=== PATIENT | male | born 1960 | race Caucasian/White ===

== ENCOUNTER → 2020-07-26 14:07 | Outpatient (CLI) | payer OTHER, MEDICAID, SELFPAY ==
[2020-07-26 15:01] LABS: COVID19 -Nasal RAPID Negative (Negative)
== END ==
PROVIDERS: Referring Provider Family Medicine; Visit Provider Family Medicine
DX: Z20.822 Contact with and (suspected) exposure to COVID-19 (principal)
CPT/HCPCS: 87635; C9803

== ENCOUNTER → 2020-07-26 14:11 | Outpatient (CLI) | payer OTHER, MEDICAID, SELFPAY ==
--- NOTE | 2020-08-01 11:14 | P.PFT.S_ITS ---
Pulmonary Function Test Referral & Results Date Patient Seen: 07/26/20 Results: The spirometry demonstrates an FVC of 3.56 L which is 70% of predicted. The FEV1 was measured at 2.07 L which is 60% of predicted. The FEV1/FVC ratio was 58 which is 77% of predicted. Following the administration of bronchodilator there was no appreciable change. Lung volumes show an SVC of 3.62 L which is 79% of predicted. The diffusing capacity was measured at 21.06 which is 67% of predicted. No h emoglobin value was provided, so no correction for potential anemia could be made, if appropriate. The maximum voluntary ventilation was normal Interpretation: This study demonstrates moderate obstructive lung disease based on reduction FEV1 although FEV1/FVC ratio is relatively preserved. There is no evidence of benefit following bronchodilator There is a mild reduction in lung volumes suggesting minimal restrictive lung disease There is also [id number] reduction in diffusing capacity suggesting element of disease at the capillary alveolar level
== END ==
PROVIDERS: Referring Provider Family Medicine; Visit Provider Family Medicine
DX: J44.9 Chronic obstructive pulmonary disease, unspecified (principal)
CPT/HCPCS: 94060; 94726; 94729

== ENCOUNTER → 2020-07-26 15:28 | Outpatient (CLI) | payer OTHER, MEDICAID, SELFPAY ==
[2020-07-26] MEDS: COVID-19 VACC #1, MRNA(MOD) 100 MCG/0.5 ML VIAL IM (15:38)
== END ==
PROVIDERS: Visit Provider Internal Medicine
DX: Z23 Encounter for immunization (principal)
CPT/HCPCS: 0011A; 91301

== ENCOUNTER → 2020-08-24 08:36 | Outpatient (CLI) | payer OTHER, MEDICAID, SELFPAY ==
[2020-08-24] MEDS: COVID-19 VACC #2, MRNA(MOD) 100 MCG/0.5 ML VIAL IM (08:50)
== END ==
PROVIDERS: Visit Provider Internal Medicine
DX: Z23 Encounter for immunization (principal)
CPT/HCPCS: 0012A; 91301

== ENCOUNTER 2021-11-22 11:10 | Emergency (ER) | payer OTHER, MEDICAID, SELFPAY ==
[2021-11-22 11:15] VITALS: BP 130/74; PULSE 76; RESP 15; TEMP 36.1; O2SAT 99; BMI 23.6
[2021-11-22] MEDS: BACITRACIN OINT 0.9 GM PCKT 2 APPLIC TOP (12:41)
[2021-11-22] MEDS: TET,DIPH,PERTUSS(ACELL),VAC/PF 0.5 ML SYRINGE IM (12:42)
--- NOTE | 2021-11-22 14:00 | ED_ITS ---
HPI - Wound/Laceration <Jackson Bojorquez PA-C - Last Filed: 11/22/21 14:06> General Chief Complaint: Wound/Laceration Stated Complaint: Left finger lac Time Seen by Provider: 11/22/21 12:25 Source: patient Mode of arrival: Ambulatory History of Present Illness HPI narrative: Patient is 61-year-old male to the emergency room today with complaint of cut to his left index finger tip. Patient states he was using an electric tool in the y[place] and it slipped and cut his distal to. Patient states this happened over 24 hours ago and initially had some bleeding but it has significantly decreased. Denies any other concerns at this time. Related Data Previous Rx's Medication Instructions Recorded cephalexin 500 mg capsule 500 mg PO TID #15 caps 11/22/21 Allergies Allergy/AdvReac Type Severity Reaction Status Date / Time No Known Drug Allergies Allergy Verified 11/22/21 11:15 Review of Systems <Jackson Bojorquez PA-C - Last Filed: 11/22/21 14:06> Review of Systems Narrative: R.O.S.: General: No fever, chills or fatigue. Cardiovascular: No chest pain or palpitations Respiratory: No S.O.B. HEENT: No congestion, ear pain, rhinorrhea, sore throat or tinnitus Gastrointestinal: No nausea or vomiting Skin: Cut to distal left index finger Neurological: Awake, alert and in not apparent distress. No Headaches, changes in vision or other related neurological concerns. Patient History <Jackson Bojorquez PA-C - Last Filed: 11/22/21 14:06> Social History Smoking Status: Current every day smoker Smoking Status: Current every day smoker alcohol intake frequency: 0-2 drinks per day Substance Use Type: does not use Exam <Jackson Bojorquez PA-C - Last Filed: 11/22/21 14:06> Narrative Exam Narrative: Physical Exam: ? General: normal appearance, well developed, well nourished, alert, and awake. Not in acute distress. ? Head: Normocephalic, no lesions. Chest: Lungs CTAB, no rales, rhonchi or wheezes. ?? Heart: RRR, no murmurs, rubs or gallops. Eyes: PERRLA, EOM's full, conjunctivae clear. ? Neuro: Physiological, no localizing findings, CN3-12 intact. ?? Extremities: Warm, well perfused, FROM, no deformities, no edema. ?? Skin: Patient has a superficial laceration to the dorsal left distal index finger. Has bilateral very minimal erythema swelling or bleeding at this time. The nailbed is mildly involved at the base and also with appears to be a superficial cut. PSYCHIATRIC: The mood is good, no blunted affect. Speech is clear. Thought process is linear, thought content is appropriate. The voice is without significant inflection. Initial Vital Signs Initial Vital Signs: Vital Signs Temperature 97.0 F L 11/22/21 11:15 Pulse Rate 76 11/22/21 11:15 Respiratory Rate 15 11/22/21 11:15 Blood Pressure 130/74 11/22/21 11:15 Pulse Oximetry 99 11/22/21 11:15 Oxygen Delivery Method 11/22/21 11:15 <Britney Pineda DO - Last Filed: 11/27/21 07:05> Initial Vital Signs Initial Vital Signs: Vital Signs Temperature 97.0 F L 11/22/21 11:15 Pulse Rate 76 11/22/21 11:15 Respiratory Rate 15 11/22/21 11:15 Blood Pressure 130/74 11/22/21 11:15 Pulse Oximetry 99 11/22/21 11:15 Oxygen Delivery Method 11/22/21 11:15 Course <Jackson Bojorquez PA-C - Last Filed: 11/22/21 14:06> Orders Ordered: Discontinued Medications Bacitracin (Bacitracin Oint 0.9 Gm Pckt) 2 applic TOP NOW ONE Stop: 11/22/21 12:36 Last Admin: 11/22/21 12:41 Dose: 2 applic Documented By: RYLAN Diphtheria/Tetanus/Acell Pertussis (Tet,Diph,Pertuss(Acell),Vac/Pf 0.5 Ml Syringe) 0.5 ml IM .ONCE ONE Stop: 11/22/21 12:31 Last Admin: 11/22/21 12:42 Dose: 0.5 ml Documented By: RYLAN Vital Signs Vital signs: Vital Signs - 8 hr 11/22/21 11:15 Temperature 97.0 F L Pulse Rate 76 Respiratory Rate 15 Blood Pressure 130/74 Pulse Oximetry 99 Oxygen Delivery Method Room Air <Britney Pineda DO - Last Filed: 11/27/21 07:05> Orders Ordered: Discontinued Medications Bacitracin (Bacitracin Oint 0.9 Gm Pckt) 2 applic TOP NOW ONE Stop: 11/22/21 12:36 Last Admin: 11/22/21 12:41 Dose: 2 applic Documented By: RYLAN Diphtheria/Tetanus/Acell Pertussis (Tet,Diph,Pertuss(Acell),Vac/Pf 0.5 Ml Syringe) 0.5 ml IM .ONCE ONE Stop: 11/22/21 12:31 Last Admin: 11/22/21 12:42 Dose: 0.5 ml Documented By: RYLAN Vital Signs Vital signs: Vital Signs - 8 hr 11/22/21 11:15 Temperature 97.0 F L Pulse Rate 76 Respiratory Rate 15 Blood Pressure 130/74 Pulse Oximetry 99 Oxygen Delivery Method Room Air MDM - Wound/Laceration <Jackson Bojorquez PA-C - Last Filed: 11/22/21 14:06> MDM Narrative Medical decision making narrative: Patient is 61-year-old male who presents to the emergency room today with complaint of a cut to the left wrist or hand finger happened over 24 hours ago.. Four days on physical exam patient was noted to have a superficial macerated abrasion to the left breast and also aware comfortably dorsal index finger. The area has very minimal swelling her most are station with minimal to no drainage erythema this time plan Discharge Plan Departure Patient Disposition: Home Clinical Impression: Finger laceration Instructions: DI for Laceration Repair Activity Restrictions/Additional Instructions: *You have been diagnosed with [Left finger laceration ]. Your laceration is superficial hand and has been over 24 hours since the initial injury. The injury started to heal so no sutures would be placed at this time. He received Tdap and a dressing has been placed. A suggestion continue to use the antibiotic ointment and clean dressing as instructed. Also please refrain from allowing any foreign materials or debris to enter the room. You also been ordered antibiotics prophylaxis against infection. I also suggest she take the antibiotics and thus ordered him return to this emergency room for any emergent concerns arise. *What to do: *Please continue to take your regular medications as directed. [ ] New medication prescriptions sent to your pharmacy: [ ] [x] New medication written as a paper prescription [ ] No new medications given *Please follow up with your primary care provider in 2-3 days, call for an appointment. Let them know you were seen in the Emergency Department and that we ask that you be seen in follow up. We will electronically transmit a record of today's note if your PCP is in our system *If you do not have a primary care provider please contact the [facility] Resource line at [phone]. They will ask some questions about your medical history and help get you set up with a doctor in the community. *Return to Emergency Department if you should have any new, worsening or concerning symptoms, such as [fever greater than 101 F, shaking chills, worsening pain, persistent vomiting or other bothersome symptoms] Prescriptions: New cephalexin 500 mg capsule 500 mg PO TID Qty: 15 0RF Visit Report Forms: Patient Portal/API <Britney Pineda DO - Last Filed: 11/27/21 07:05> Cosign ED Attending Lawson Attestation: I was immediately available in the department for consultation. Documentation has been reviewed. I agree with assessment and plan.
== END 2021-11-22 13:18 | disposition home or self-care (01) ==
PROVIDERS: Emergency Provider Physician Assistant
DX: S61.211A Laceration without foreign body of left index finger without damage to nail, initial encounter (principal); W29.8XXA Contact with other powered hand tools and household machinery, initial encounter; Z23 Encounter for immunization
CPT/HCPCS: 90471; 99283; 90715

== ENCOUNTER → 2022-04-03 13:54 | Outpatient (CLI) | payer OTHER, MEDICAID, SELFPAY ==
[2022-04-03 14:50] LABS: COVID-19 CEPHEID 4-PLEX PCR Negative (Negative); Influenza A - CEPHEID Flu A NEGATIVE (NEGATIVE); Influenza B - CEPHEID Flu B NEGATIVE (NEGATIVE); Respiratory Syncytial Virus Negative (Negative)
== END ==
PROVIDERS: Visit Provider Registered Nurse
DX: J06.9 Acute upper respiratory infection, unspecified (principal)
CPT/HCPCS: 0241U

== ENCOUNTER → 2022-09-24 12:43 | Outpatient (CLI) | payer OTHER, MEDICAID, SELFPAY ==
--- NOTE | 2022-09-24 12:45 | DI.RAD.S_ITS ---
PROCEDURE: XR WRIST RT MIN 3V INDICATIONS: wrist sprain/pain TECHNIQUE: 4 views of the wrist were acquired. COMPARISON: None. FINDINGS: Bones: No fractures or dislocations. No suspicious bony lesions. Soft tissues: No suspicious soft tissue calcifications. IMPRESSION: Unremarkable right wrist radiographs Approved by: Amanuel Kennedy M.D. on 09/24/2022 at 12:55
== END ==
PROVIDERS: Referring Provider Student in an Organized Health Care Education/Training Program; Visit Provider Student in an Organized Health Care Education/Training Program
DX: S63.501A Unspecified sprain of right wrist, initial encounter (principal); X58.XXXA Exposure to other specified factors, initial encounter
CPT/HCPCS: 73110